=== PATIENT | male | born 1970 | race Caucasian/White ===

== ENCOUNTER 2021-07-28 14:14 | Inpatient (IN) | payer OTHER ==
[~2021-07-28] VITALS: Ht 175.3 cm; Wt 101.6 kg
[2021-07-28 15:13] LABS: HEMOGLOBIN 11.5 gm/dl (14.0-17.5); RED BLOOD COUNT 4.42 M/UL (4.20-5.50); WHITE BLOOD COUNT 11.9 K/UL (4.5-11.0)
[2021-07-28 15:33] LABS: BUN/CREATININE RATIO 8 (0-10)
[2021-07-28] MEDS ORDERED: LINZESS290 MCG PO (18:39)
[2021-07-28] MEDS ORDERED: OXYCODONE HCL10 MG PO (18:39)
[2021-07-28] MEDS ORDERED: AMITRIPTYLINE H50 MG PO (18:39)
[2021-07-28] MEDS ORDERED: BACLOFEN10 MG PO (18:40)
[2021-07-28] MEDS ORDERED: CYMBALTA60 MG PO (18:40)
[2021-07-28] MEDS ORDERED: VITAMIN D325 MCG PO ×2 (18:40→18:46)
[2021-07-28] MEDS ORDERED: DOCUSATE SODIU100 MG PO (18:40)
[2021-07-28] MEDS ORDERED: ESCITALOPRAM OX20 MG PO (18:41)
[2021-07-28] MEDS ORDERED: HYDROCHLOROTHIA25 MG PO (18:41)
[2021-07-28] MEDS ORDERED: GABAPENTIN800 MG PO (18:41)
[2021-07-28] MEDS ORDERED: HYDROXYZINE PAM25 MG PO (18:42)
[2021-07-28] MEDS ORDERED: LACTULOSE10 GM/15 M PO (18:43)
[2021-07-28] MEDS ORDERED: XARELTO10 MG PO (18:44)
[2021-07-28] MEDS ORDERED: PROTONIX 40 MG40 M1 PO (18:44)
[2021-07-28] MEDS ORDERED: RELISTOR150 MG PO (18:44)
[2021-07-28] MEDS ORDERED: SENNA PLUS 8.61 EACH PO (18:45)
[2021-07-29 06:41] LABS: HEMOGLOBIN 10.2 gm/dl (14.0-17.5); RED BLOOD COUNT 3.96 M/UL (4.20-5.50); WHITE BLOOD COUNT 10.4 K/UL (4.5-11.0)
[2021-07-29 07:17] LABS: BUN/CREATININE RATIO 8 (0-10)
--- NOTE | 2021-07-29 13:25 | NUR ---
after several iv attempts with no luck, dr wray aware and pt has not received fluids or iv meds this am.
--- NOTE | 2021-07-29 18:22 | NUR ---
DR GRAHAM AT BEDSIDE TO SEE PT WOUND, DRESSING CHANGED PER MD.
[2021-07-30 06:37] LABS: HEMOGLOBIN 11.2 gm/dl (14.0-17.5); RED BLOOD COUNT 4.35 M/UL (4.20-5.50); WHITE BLOOD COUNT 9.4 K/UL (4.5-11.0)
[2021-07-30 07:06] LABS: BUN/CREATININE RATIO 8 (0-10)
[2021-07-31 08:39] LABS: HEMOGLOBIN 11.4 gm/dl (14.0-17.5); RED BLOOD COUNT 4.51 M/UL (4.20-5.50); WHITE BLOOD COUNT 8.9 K/UL (4.5-11.0)
[2021-07-31 09:12] LABS: BUN/CREATININE RATIO 9 (0-10)
[2021-08-01 07:40] LABS: BUN/CREATININE RATIO 14 (0-10)
[2021-08-01 08:43] LABS: HEMOGLOBIN 11.8 gm/dl (14.0-17.5); WHITE BLOOD COUNT 13.2 K/UL (4.5-11.0)
--- NOTE | 2021-08-01 13:39 | NUR ---
PATIENT REQUESTED TO SIT IN A CHAIR IN THE SHOWER. RN INSTRUCTED PATIENT THAT THIS WAS NOT SAFE PRACTICE DUE TO ULCER ON BUTTOCK. STAFF OFFERED TO PERFORM A BED BATH AND COMPLETE LINEN CHANGE ON PATIENT TO PROMOTE COMFORT. PATIENT AND REFUSED AND PATIENT'S STATED SHE WOULD PROVIDE PATIENT WITH A BED BATH. STAFF INSTRUCTED PATIENT TO UTILIZE CALL LIGHT IF FURTHER NEEDS PERSISTED. PATIENT VERBALIZED UNDERSTANDING.
[2021-08-02 03:38] LABS: HEMOGLOBIN 12.1 gm/dl (14.0-17.5); RED BLOOD COUNT 4.83 M/UL (4.20-5.50); WHITE BLOOD COUNT 12.3 K/UL (4.5-11.0)
[2021-08-02 03:59] LABS: BUN/CREATININE RATIO 22 (0-10)
[2021-08-03 03:38] LABS: HEMOGLOBIN 11.4 gm/dl (14.0-17.5); RED BLOOD COUNT 4.59 M/UL (4.20-5.50); WHITE BLOOD COUNT 10.6 K/UL (4.5-11.0)
[2021-08-03 04:01] LABS: BUN/CREATININE RATIO 23 (0-10)
[2021-08-04 03:26] LABS: HEMOGLOBIN 11.4 gm/dl (14.0-17.5); RED BLOOD COUNT 4.53 M/UL (4.20-5.50); WHITE BLOOD COUNT 12.4 K/UL (4.5-11.0)
[2021-08-04 03:49] LABS: BUN/CREATININE RATIO 20 (0-10)
[2021-08-04] MEDS ORDERED: OXYCODONE HCL10 MG PO (14:29)
== END 2021-08-04 18:14 | disposition home health service (06) | DRG 463 ==
LOC: ER1 14:14 → MED SURG 4 18:31 → CDU 18:31 → MED SURG 4 21:06
PROVIDERS: Internal Medicine; Physician Assistant; ADMIT Internal Medicine
PROC: 0JB70ZZ Excision of Back Subcutaneous Tissue and Fascia, Open Approach (ICD-10-PCS; 2021-07-29)
PROC: 02HV33Z Insertion of Infusion Device into Superior Vena Cava, Percutaneous Approach (ICD-10-PCS; principal; 2021-08-02)
DX: M86.8X8 Other osteomyelitis, other site (principal); L89.154 Pressure ulcer of sacral region, stage 4; L89.323 Pressure ulcer of left buttock, stage 3; T80.211A Bloodstream infection due to central venous catheter, initial encounter; I96 Gangrene, not elsewhere classified; G82.20 Paraplegia, unspecified; E87.1 Hypo-osmolality and hyponatremia; F11.20 Opioid dependence, uncomplicated; R78.81 Bacteremia; Z20.822 Contact with and (suspected) exposure to COVID-19; N31.9 Neuromuscular dysfunction of bladder, unspecified; E66.01 Morbid (severe) obesity due to excess calories; K59.09 Other constipation; F17.210 Nicotine dependence, cigarettes, uncomplicated; Y83.8 Other surgical procedures as the cause of abnormal reaction of the patient, or of later complication, without mention of misadventure at the time of the procedure; B37.9 Candidiasis, unspecified; Z88.0 Allergy status to penicillin; Z88.1 Allergy status to other antibiotic agents; Z82.49 Family history of ischemic heart disease and other diseases of the circulatory system; Z83.438 Family history of other disorder of lipoprotein metabolism and other lipidemia; G89.29 Other chronic pain; B19.20 Unspecified viral hepatitis C without hepatic coma; Z79.01 Long term (current) use of anticoagulants
CPT/HCPCS: 36415; 71045; 80053; 80202; 81001; 83605; 83735; 85025; 85027; 85652; 86140; 87040; 87086; 87102; 96374; 99284; A6212; C1751; J1650; J2212; J2248; J2270; J3243; J3370; J7070; U0002